=== PATIENT | male | born 1955 | race Caucasian/White ===

== ENCOUNTER → 2020-06-11 | Outpatient (CLI) | payer OTHER ==
[~2020-06-11] MED LIST: ALFUZOSIN HCL10 MG PO; XARELTO20 M1 PO
[2020-06-11 14:40] LABS: BASOPHILS ABSOLUTE AUTO 0.05 K/mm3 (0.00-0.23); BASOPHILS PERCENT AUTO 1 % (0-2); EOSINOPHILS ABSOLUTE AUTO 0.07 K/mm3 (0.00-0.68); EOSINOPHILS PERCENT AUTO 1 % (0-6); IMMATURE GRAN ABSOLUTE AUTO 0.02 K/mm3 (0.00-0.10); IMMATURE GRAN PERCENT AUTO 0 % (0-1); LYMPHOCYTES ABSOLUTE AUTO 1.08 K/mm3 (0.84-5.20); LYMPHOCYTES PERCENT AUTO 18 % (21-46); MONOCYTES ABSOLUTE AUTO 0.64 K/mm3 (0.16-1.47); MONOCYTES PERCENT AUTO 11 % (4-13); Mean Corpuscular HGB 21.4 pg (26.0-34.0); Mean Corpuscular HGB Conc 30.3 g/dL (31.5-36.5); Mean Corpuscular Volume 71 fL (80-100); Mean Platelet Volume 8.9 fL (9.1-12.4); NEUTROPHILS ABSOLUTE AUTO 4.25 K/mm3 (1.96-9.15); NEUTROPHILS PERCENT AUTO 70 % (41-73); Platelet Count 406 K/mm3 (150-400); RDW Coefficient Variation 18.1 % (11.7-14.2); RDW Standard Deviation 45.8 fL (35.1-46.3); White Blood Cell Count 6.11 K/mm3 (4.00-11.30)
[2020-06-11 14:41] LABS: Hemoglobin 4.7 g/dL (13.5-17.5)
[2020-06-11 14:42] LABS: Hematocrit 15.5 % (37.0-53.0)
[2020-06-11 14:56] LABS: Albumin, Blood 3.7 g/dL (3.4-5.0); Bilirubin, Total 0.7 mg/dL (0.1-1.0); Bun/Creatinine Ratio 10.1 (12.0-20.0); Calcium, Blood 8.9 mg/dL (8.5-10.1); Creatinine, Blood 1.68 mg/dL (0.60-1.20); Globulin, Blood 3.8 g/dL (2.2-4.0); Potassium, Blood 3.5 mmol/L (3.5-5.5); Thyroid Stimulating Hormone 3.106 uIU/mL (0.360-4.800); Total Protein, Blood 7.5 g/dL (6.4-8.2)
[2020-06-11 15:35] LABS: Troponin I 0.018 ng/mL (0.000-0.040)
== END | disposition home or self-care (01) ==
LOC: LAB SHORT 14:32
PROVIDERS: Physician Assistant
DX: R42 Dizziness and giddiness (principal); R53.83 Other fatigue; Z86.718 Personal history of other venous thrombosis and embolism
CPT/HCPCS: 80053; 83690; 84443; 84484; 85025; 85379

== ENCOUNTER → 2021-08-20 | Outpatient (CLI) | payer OTHER | END | disposition home or self-care (01) | LOC: LAB 11:08 → LAB SHORT 11:08 | DX: N39.0 Urinary tract infection, site not specified (principal) | CPT/HCPCS: 87086 ==

== ENCOUNTER 2022-01-17 19:21 | Inpatient (IN) | payer OTHER ==
[~2022-01-17] VITALS: Ht 177.8 cm; Wt 92.9 kg
[~2022-01-17 19:21] MED LIST changes: -BENADRYL25 M1 PO
[2022-01-17 21:17] LABS: Anti-Xa UFH, PHA Monitoring <0.10 IU/mL; International Normalized Ratio 1.09; Prothrombin Time Results 11.4 Sec (9.7-11.5)
[2022-01-18] MEDS ORDERED: BENADRYL25 M1 PO (00:17)
[2022-01-18 04:32] LABS: BASOPHILS ABSOLUTE AUTO 0.04 K/mm3 (0.00-0.23); BASOPHILS PERCENT AUTO 1 % (0-2); EOSINOPHILS ABSOLUTE AUTO 0.04 K/mm3 (0.00-0.68); EOSINOPHILS PERCENT AUTO 1 % (0-6); Hematocrit 36.2 % (37.0-53.0); Hemoglobin 12.5 g/dL (13.5-17.5); IMMATURE GRAN ABSOLUTE AUTO 0.01 K/mm3 (0.00-0.10); IMMATURE GRAN PERCENT AUTO 0 % (0-1); LYMPHOCYTES ABSOLUTE AUTO 2.19 K/mm3 (0.84-5.20); LYMPHOCYTES PERCENT AUTO 35 % (21-46); MONOCYTES ABSOLUTE AUTO 0.84 K/mm3 (0.16-1.47); MONOCYTES PERCENT AUTO 13 % (4-13); Mean Corpuscular HGB 32.4 pg (26.0-34.0); Mean Corpuscular HGB Conc 34.5 g/dL (31.5-36.5); Mean Corpuscular Volume 94 fL (80-100); Mean Platelet Volume 9.1 fL (9.1-12.4); NEUTROPHILS ABSOLUTE AUTO 3.19 K/mm3 (1.96-9.15); NEUTROPHILS PERCENT AUTO 51 % (41-73); Platelet Count 206 K/mm3 (150-400); RDW Coefficient Variation 13.3 % (11.7-14.2); RDW Standard Deviation 45.8 fL (35.1-46.3); Red Blood Cell Count 3.86 M/mm3 (4.30-5.90); White Blood Cell Count 6.31 K/mm3 (4.00-11.30)
[2022-01-18 04:48] LABS: Albumin, Blood 2.7 g/dL (3.4-5.0); Albumin/Globulin Ratio 0.7 (0.8-1.8); Bilirubin, Total 1.2 mg/dL (0.1-1.0); Bun/Creatinine Ratio 19.7 (12.0-20.0); Calcium, Blood 8.5 mg/dL (8.5-10.1); Creatinine, Blood 0.81 mg/dL (0.60-1.20); Globulin, Blood 3.8 g/dL (2.2-4.0); Total Protein, Blood 6.5 g/dL (6.4-8.2)
--- NOTE | 2022-01-18 05:43 | NUR ---
SHIFT SUMMARY PT ADMITTED TO PCU FOR PE AND CAME TO THE ROOM W/ A HEP GTT RUNNING AT 18. HE IS A&0X4, MOVES IND IN BED, CIWAS 2-3 T/O THE SHIFT, AND HE IS SR 80'S-90'S ON TELEMETRY. HE HAS BEEN SOB, BUT IT WORSENS W/ ACTIVITY. HE DESATURATED TO 88% AND WAS PLACED ON 1L NC TO [place] SP02>90%. HE DENIES ANGINA, N/V/D, ABD PAIN. WILL CONTINUE TO MONITOR UNTIL SHIFT REPORT IS GIVEN TO THE ONCOMING SHIFT RN. SEE NOTES FOR ANY UPDATES.
--- NOTE | 2022-01-18 09:22 | NUR ---
AM NOTE: PATIENT ALERT AND ORIENTED X4. SLIGHTLY ANXIOUS AND IRRITABLE WITH AM CARES. DENIES N/T. ABLE TO STAND AND USE URINAL WITH SBA TO HELP MANAGE CORDS. PERRLA. ON 1L NASAL CANNULA SATING MID-HIGH 90'S. NOTED TO BE AROUND 90% ON 1L WHEN SLEEPING THIS AM. LUNGS SOUNDING CLEAR. SOB WITH MOVEMENTS. NO COUGH NOTED. ON TELE SHOWING SINUS RHYTHM WITH HR 80-90'S. DENIES CHEST PAIN/PRESSURE/PALPITATIONS. BP STABLE. PPP. NO SIGNS OF EDEMA. HEPARIN GTT INFUSING PER EMAR. DENIES ABDOMINAL PAIN/NAUSEA. USING URINAL AT BEDSIDE. CIWA 3 THIS AM DUE TO HEADACHE AND ANXIETY. PATIENT STATES HE WISHES TO QUIT DRINKING AND WAS EDUCATED ON WITHDRAWL PROCESS. CALL LIGHT IN REACH. BED ALARM IN PLACE. WILL CONTINUE TO MONITOR.
--- NOTE | 2022-01-18 10:12 | NUR ---
PATIENT VERY AGGITATED AND ANXIOUS. CIWA SCORED 8. SEE EMAR FOR MEDICATIONS GIVEN.
--- NOTE | 2022-01-18 10:53 | NUR ---
DR. BRIGGS BY TO SEE PATIENT. THIS RN DISCUSSED PATIENT DESIRE TO WITHDRAWL WITH DR. BRIGGS AND COMPLAINTS OF CONSTIPATION. PRN BOWEL CARE MEDS ORDERED. PATIENT SLEEPING AT THIS TIME. O2 TITRATED TO 3L WHILE PATIENT SLEEPING TO MAINTAIN O2 AT 95%.
--- NOTE | 2022-01-18 16:19 | NUR ---
VENOUS DUPLEX OF BILATERAL LOWER EXREMITIES COMPLETED BY DIRECTOR FOUNDATION. PRELIMINARY REPORT GIVEN TO THIS RN: PATIENT POSITIVE FOR DVT IN BILATERAL LOWER EXTREMITIES WITH THE RIGHT LOOKING WORSE THAN LEFT. RESULTS CALLED INTO DR. BRIGGS. HEPARIN DRIP CONTINUES TO INFUSE PER EMAR. NO NEW ORDERS.
--- NOTE | 2022-01-18 18:41 | NUR ---
SHIFT SUMMARY: SEE PREVIOUS NOTES FOR UPDATES THROUGHOUT SHIFT. CIWA RANGE FROM 3-8 MEDICATED X1 FOR CIWA SCORE OF 8 WITH GOOD RESULTS. REMAINS ON 3L NASAL CANNULA. TELE CONTINUES TO SHOW SR. DR. BRIGGS IN TO DISCUSS VENOUS DUPLEX SCAN RESULTS WITH PATIENT. HEPARIN DRIP CONTINUES PER EMAR. UP TO BSC TO ATTEMPT BM. STOOL SOFTNERS ON BOARD. USING URINAL TO VOID. TALKING TO FAMILY ON PHONE THROUGHOUT SHIFT. CALLING FOR NEEDS. WITHDRAWL SYMPTOMS AND EDUCATION REINFORCED THROUGHOUT SHIFT. PATIENT SEEMS TO NEED LOTS OF REINFORCEMENT WITH EDUCATION. WILL CONTINUE TO MONITOR AND REPORT OFF TO ONCOMING RN.
[2022-01-19 04:40] LABS: BASOPHILS ABSOLUTE AUTO 0.06 K/mm3 (0.00-0.23); BASOPHILS PERCENT AUTO 1 % (0-2); EOSINOPHILS ABSOLUTE AUTO 0.13 K/mm3 (0.00-0.68); EOSINOPHILS PERCENT AUTO 2 % (0-6); Hematocrit 35.3 % (37.0-53.0); Hemoglobin 11.9 g/dL (13.5-17.5); IMMATURE GRAN ABSOLUTE AUTO 0.01 K/mm3 (0.00-0.10); IMMATURE GRAN PERCENT AUTO 0 % (0-1); LYMPHOCYTES PERCENT AUTO 47 % (21-46); MONOCYTES ABSOLUTE AUTO 0.65 K/mm3 (0.16-1.47); MONOCYTES PERCENT AUTO 11 % (4-13); Mean Corpuscular HGB 32.2 pg (26.0-34.0); Mean Corpuscular HGB Conc 33.7 g/dL (31.5-36.5); Mean Corpuscular Volume 96 fL (80-100); NEUTROPHILS ABSOLUTE AUTO 2.39 K/mm3 (1.96-9.15); NEUTROPHILS PERCENT AUTO 39 % (41-73); Platelet Count 228 K/mm3 (150-400); RDW Coefficient Variation 13.5 % (11.7-14.2); RDW Standard Deviation 47.5 fL (35.1-46.3); Red Blood Cell Count 3.69 M/mm3 (4.30-5.90); White Blood Cell Count 6.14 K/mm3 (4.00-11.30)
[2022-01-19 04:59] LABS: Albumin, Blood 2.5 g/dL (3.4-5.0); Anion Gap 7 mmol/L (6-16); Blood Urea Nitrogen 18 mg/dL (8-24); CO2, Blood 22 mmol/L (21-32); Calcium, Blood 8.7 mg/dL (8.5-10.1); Chloride, Blood 108 mmol/L (98-108); Glomerular Filtration Rate 95 (60-); Glucose, Blood 102 mg/dL (70-99); Phosphorus, Blood 3.6 mg/dL (2.5-4.9); Potassium, Blood 3.8 mmol/L (3.5-5.5); Sodium, Blood 137 mmol/L (136-145)
--- NOTE | 2022-01-19 05:06 | NUR ---
SHIFT SUMMARY PT A&0X4, CIWA 1-3. SR 70'S-90'S ON TELE, SP02>90% ON 2-3L NC, PT MOVES IND IN BED, AND HEPARIN RUNNING AT 18 GTTS. HE HAS DENIED, ANGINA, SOB, HEADACHE, ANXIETY, AND NUMBNESS/TINGLING. HE WAS HAVING SOME BACK ACHES AT THE BEGINING OF THE SHIFT AND WAS MEDICATED W/ TYLONAL, WHICH HAS RELIEVED THE PAIN. BED IN LOW, CALL LIGHT IN REACH. WILL CONTINUE TO MONITOR UNTIL SHIFT REPORT IS GIVEN TO THE ONCOMING SHIFT RN. SEE NOTES FOR ANY UPDATES.
--- NOTE | 2022-01-19 11:05 | NUR ---
AM NOTE: PATIENT ALERT AND ORIENTED X4. AT TIMES MORE ANXIOUS BUT DENIES NEED FOR MEDICATION. ALCOHOL WITHDRAWL EDUCATION PROVIDED. DENIES N/T. UP SBA TO HELP MANAGE CORDS. USING BSC AND URINAL. ON 3L NASAL CANNULA SATING MID 90'S. LUNGS SOUNDING CLEAR AND DIM. SOB WITH MOVEMENT. NO COUGH NOTED. TELE SHOWING SR WITH HR 70-90'S. DENIES CP/P. BP STABLE. PPP. NO SIGNS OF EDEMA. NO SWELLING NOTED IN LEGS. PATIENT AWARE OF HEPARIN RISK AND FALL PREVENTION. CALL LIGHT IN REACH. BED ALARM IN PLACE FOR SAFETY. DENIES ABDOMINAL PAIN/NAUSEA. EATING WNL. PLAN FOR NPO AT MIDNIGHT TO PREPARE FOR [facility] CONSULT ON 12/5 AM. CIWA SCORE THIS AM 3. STOOL SOFTNERS ON BOARD NEEDED. PATIENT DENIES THIS AM. DENIES OVERALL PAIN. SKIN C/D/I. HEPARIN INFUSING PER EMAR. WILL CONITNUE TO MONITOR.
--- NOTE | 2022-01-19 17:52 | NUR ---
SHIFT SUMMARY: NO ACUTE CHANGES. SEE PREVIOUS NOTES FOR UPDATES. HIGHEST CIWA SCORED 8, TOTAL 1MG IV ATIVAN AND 25 MG PO LIBRIUM GIVEN THIS SHIFT. HEPARIN CONTINUES TO INFUSE PER EMAR. [facility] CONSULT IN PLACE. NPO AT MIDNIGHT. VITAL SIGNS REMAIN STABLE. ON 3L NASAL CANNULA. CALL LIGHT IN REACH. WILL CONTINUE TO MONITOR AND REPORT OFF TO ONCOMING RN.
[2022-01-20 04:13] LABS: BASOPHILS ABSOLUTE AUTO 0.05 K/mm3 (0.00-0.23); BASOPHILS PERCENT AUTO 1 % (0-2); EOSINOPHILS ABSOLUTE AUTO 0.13 K/mm3 (0.00-0.68); EOSINOPHILS PERCENT AUTO 2 % (0-6); Hematocrit 33.6 % (37.0-53.0); Hemoglobin 11.6 g/dL (13.5-17.5); IMMATURE GRAN ABSOLUTE AUTO 0.01 K/mm3 (0.00-0.10); IMMATURE GRAN PERCENT AUTO 0 % (0-1); LYMPHOCYTES ABSOLUTE AUTO 2.31 K/mm3 (0.84-5.20); LYMPHOCYTES PERCENT AUTO 41 % (21-46); MONOCYTES ABSOLUTE AUTO 0.56 K/mm3 (0.16-1.47); MONOCYTES PERCENT AUTO 10 % (4-13); Mean Corpuscular HGB 32.4 pg (26.0-34.0); Mean Corpuscular HGB Conc 34.5 g/dL (31.5-36.5); Mean Corpuscular Volume 94 fL (80-100); Mean Platelet Volume 8.7 fL (9.1-12.4); NEUTROPHILS PERCENT AUTO 46 % (41-73); Platelet Count 208 K/mm3 (150-400); RDW Coefficient Variation 13.3 % (11.7-14.2); RDW Standard Deviation 46.1 fL (35.1-46.3); Red Blood Cell Count 3.58 M/mm3 (4.30-5.90); White Blood Cell Count 5.66 K/mm3 (4.00-11.30)
--- NOTE | 2022-01-20 04:49 | NUR ---
SHIFT SUMMARY PT IS A&OX4, IND MOVING IN BED, CIWA 0-3, TELE SR 80'S-90'S, SP02 >90% ON 3L WHEN ASLEEP, DENIES ANGINA/CHEST PRESSURE, AND AND HAS A HEPARIN GTT RUNNING AT 18. PT'S HGB HAS BEEN TRENDING DOWN, BUT HE HAS NO SIGNS OF BLEEDING OR ECCHYMOSIS. HE HAS NOT HAD A BM IN A FEW DAYS AND WAS GIVEN BOWEL PREP DURING DAY SHIFT AND PRUNE JUICE DURING THE NIGHT. PT WAS C/O SOME BACK PAIN AND WAS MEDICATED W/ 650 MG TYLONAL WHICH RELIEVED THE PAIN. PT WAS SITTING IN THE CHAIR AT THE START OF THE SHIFT AND GAVE HIMSELF A BEDBATH, SHAVED, AND DID ORAL CARE. HE HAS BEEN NPO SINCE 0000 AND HAS SLEPT AFTER BEING MEDICATED. WILL CONTINUE TO MONITOR UNTIL SHIFT REPORT IS GIVEN TO THE ONCOMING SHIFT RN. SEE NOTES FOR ANY UPDATES.
--- NOTE | 2022-01-20 18:17 | NUR ---
Shift Summary Pt alert & oriented x4; anxious but coopertive with care. Pt up ind in room. Pt denies pain, chest pain/pressure, nausea, dizziness and numb/tingling. Pt on a heparin gtt per orders. Pt tele sinus, bp stable. Spo2 >90% on 1-2l o2 via nc, ls clear, breathing even and unlabored. No bm during shift, pt requesting additional prune juice, provided. Other vss. No other acute changes noted. Npo at ne for procedure with Dr Romano tomorrow. Will continue to monitor.
--- NOTE | 2022-01-20 23:48 | NUR ---
PT HAD LARGE, FORMED BM ON BSC, APPROX 15CC OF MARIO BLOOD NOTED AND STOOL WAS DARK BUT NOT TARRY, PT ALSO STATES HE HAD A NOSEBLEED YESTERDAY AND AGAIN TONIGHT, LEFT NARE PACKED WITH TISSUE AND NO ACTIVE BLEEDING OBSERVED, NOTIFIED DR SÁNCHEZ WHILE IN UNIT, VSS AND HGB RECHECK IN AM, NOTIFY DR MIGUEL IN AM
[2022-01-21 04:23] LABS: BASOPHILS ABSOLUTE AUTO 0.04 K/mm3 (0.00-0.23); BASOPHILS PERCENT AUTO 1 % (0-2); EOSINOPHILS ABSOLUTE AUTO 0.17 K/mm3 (0.00-0.68); EOSINOPHILS PERCENT AUTO 3 % (0-6); Hematocrit 36.3 % (37.0-53.0); Hemoglobin 12.2 g/dL (13.5-17.5); IMMATURE GRAN ABSOLUTE AUTO 0.01 K/mm3 (0.00-0.10); IMMATURE GRAN PERCENT AUTO 0 % (0-1); LYMPHOCYTES ABSOLUTE AUTO 2.52 K/mm3 (0.84-5.20); LYMPHOCYTES PERCENT AUTO 49 % (21-46); MONOCYTES ABSOLUTE AUTO 0.55 K/mm3 (0.16-1.47); MONOCYTES PERCENT AUTO 11 % (4-13); Mean Corpuscular HGB 32.4 pg (26.0-34.0); Mean Corpuscular HGB Conc 33.6 g/dL (31.5-36.5); Mean Corpuscular Volume 97 fL (80-100); Mean Platelet Volume 8.9 fL (9.1-12.4); NEUTROPHILS ABSOLUTE AUTO 1.84 K/mm3 (1.96-9.15); NEUTROPHILS PERCENT AUTO 36 % (41-73); Platelet Count 225 K/mm3 (150-400); RDW Coefficient Variation 13.3 % (11.7-14.2); RDW Standard Deviation 47.8 fL (35.1-46.3); Red Blood Cell Count 3.76 M/mm3 (4.30-5.90); White Blood Cell Count 5.13 K/mm3 (4.00-11.30)
--- NOTE | 2022-01-21 05:59 | NUR ---
CIWA'S 8-9, LIBRIUM 50 MG X'S 1, HEPARIN GTT TITRATED DOWN TO 16 UNITS, PT RESTLESS AND SLIGHTLY AGITATED THROUGHOUT THE NIGHT BUT DID SLEEP A COUPLE HOURS AT A TIME, LARGE BM WITH SMALL AMOUNT OF MARIO BLOOD, REPORTED TO DR SÁNCHEZ AND REMEDIAL TEACHER, WILL PASS ON FOR DR LUNDBERG TO BE NOTIFIED AND NOTE PLACED IN CHART WELL
--- NOTE | 2022-01-21 08:03 | NUR ---
Am note Pt appears to be sleeping, wakes easily to verbal stimuli. Alert, oriented x4, anxious. Ciwa this am 2. Ind in room, calls appropriately. Pt denies pain, chest pain/pressure, sob, nasuea, dizziness and numb/tingling/itching. Pt remains npo for procedure this am. Pt tele sinus 60-70, occasionally dropping to 50's while sleeping, bp stable. Spo2 >98% on 1l o2 via nc, pt requesting to keep o2 for comfort, will attempted to remove after procedure. Abd soft nontedner, bm last night with ji red blood per report, hypoactive bt noted t/o. Pt receiving heparin gtt. Other vss. No other acute changes noted. Will continue to monitor.
--- NOTE | 2022-01-21 18:19 | NUR ---
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 Pt educated on activity restrictions and leg restrictions. At approx 1400, pt found up walking in room, blood noted on floor, pt directed back to bed, held pressure to right groin site for 10 minutes, heparin stopped, and dressing replaced. Started recovery process over, restarted heparin at approx 1730. No additional bleeding noted, knot under suture increased slightly. Other vss. no other acute changes Plans for NPO after MN for additionally thrombectomy tomorrow. Will continue to monitor
--- NOTE | 2022-01-21 20:04 | NUR ---
R GROIN SITE ASSESSMENT RIGHT GROIN ACCESS SITE WITH VERY SMALL AMOUNT OF BLOOD ON TEGADERM/CHG DRESSING, SITE IS NOT ACTIVELY OOZING. THERE IS A SMALL HEMATOMA UNDER ACCESS SITE, PT REPORS MILD TENDERNESS WHEN PALPATED. NO SWELLING NOTED. PT ABLE TO STAND AT BEDSIDE WITHOUT SITE BLEEDING. EDUCATION REGARDING PT NOT BEING ABLE TO GET OUT OF BED OR AMBULATE. PT INSTRUCTED TO CALL IF THEY NEED TO USE RESTROOM. BED ALARM ON, BED IN LOWEST POSITION, CALL LIGHT IN REACH.
--- NOTE | 2022-01-22 00:11 | NUR ---
ASSUMPTION OF CARE ASSUMED CARE OF PT AT 1900. PT A&Ox4, CALLS AND COMMUNICATES NEEDS APPROPRIATELY. VSS, SpO2> 92% RA, PT REQUESTING TO BE ON 2L VIA NC FOR COMFORT. BP STABLE, SINUS 60-70's, DENIES CP/PRESSURE. SEE R GROIN SITE ASSESSMENT NOTE. PT USIG URINAL AT BEDSIDE WITH CLINICAL STAFF. PT NPO AT 0000. BED ALARM ON, BED IN LOSET POSITION, CALL LIGHT IN REACH.
--- NOTE | 2022-01-22 05:53 | NUR ---
SHIFT SUMMARY SEE RIGHT GROIN SITE ASSESSMENT NOTE AND ASSUMPTION OF CARE NOTE. NO ACUTE CHANGES OVERNIGHT. R GROIN SITE REMAINS STABLE AND UNCHANGED. WILL REPORT TO DAY SHIFT RN.
[2022-01-22 06:23] LABS: BASOPHILS ABSOLUTE AUTO 0.05 K/mm3 (0.00-0.23); BASOPHILS PERCENT AUTO 1 % (0-2); EOSINOPHILS ABSOLUTE AUTO 0.22 K/mm3 (0.00-0.68); EOSINOPHILS PERCENT AUTO 4 % (0-6); IMMATURE GRAN PERCENT AUTO 0 % (0-1); LYMPHOCYTES ABSOLUTE AUTO 2.33 K/mm3 (0.84-5.20); LYMPHOCYTES PERCENT AUTO 45 % (21-46); MONOCYTES ABSOLUTE AUTO 0.48 K/mm3 (0.16-1.47); MONOCYTES PERCENT AUTO 9 % (4-13); Mean Corpuscular HGB 32.2 pg (26.0-34.0); Mean Corpuscular HGB Conc 33.3 g/dL (31.5-36.5); Mean Corpuscular Volume 97 fL (80-100); Mean Platelet Volume 9.1 fL (9.1-12.4); NEUTROPHILS ABSOLUTE AUTO 2.06 K/mm3 (1.96-9.15); NEUTROPHILS PERCENT AUTO 40 % (41-73); Platelet Count 230 K/mm3 (150-400); RDW Coefficient Variation 13.4 % (11.7-14.2); RDW Standard Deviation 47.8 fL (35.1-46.3); Red Blood Cell Count 3.42 M/mm3 (4.30-5.90); White Blood Cell Count 5.14 K/mm3 (4.00-11.30)
--- NOTE | 2022-01-22 07:57 | NUR ---
Am note Pt alert, oriented x4, calm and cooperative with care. Pt resting in bed, bed alarm on, sba in room. Pt denies pain, chest pain/pressure, sob, nausea, dizziness and numb/tingling/itching. Tele sinus 60-70's bp stable. Spo2 at 100% on 1l o2 via nc, titrated to ra, spo2 now 95%. Abd soft nontender, hypo to normoactive bt. Pt continues on heparin gtt per orders. Right groin site c/d/i, no additional bleeding, or bruising noted, continues with slight knot under site. Vss. No other acute changes noted. Will continue to monitor.
--- NOTE | 2022-01-22 19:27 | NUR ---
Shift Summary Pt to assistant laboratory director, back to room, at approx 1445, right popliteal with flow stasis closure. Right groin site remains unchanged. Vss. Pt reporting pain to right groin site, tylenol given with no results, pt requesting additional pain medication, notified Dr Jacquelyn MD to bedside, new order for one time dose of fentanyl. No other acute changes noted. Report given to oncoming rn.
--- NOTE | 2022-01-23 04:08 | NUR ---
SHIFT SUMMARY: PT REMAINS ALERT AND ORIENTED X4, ABLE TO FOLLOW COMMANDS AND MAKE NEEDS KNOWN. BP STABLE, HR SR 90'S, AFEBRILE, SATTING >95% ON RA, RESPIRATIONS EVEN AND UNLABORED. PT COMPLAINING OF R GROIN SITE PAIN THROUGHOUT THE NIGHT, NO SIGNS OF BLEEDING,SWELLING, HEMATOMA. MEDICATED PER EMAR. R POPLITEAL SITE WITH FLOW STASIS IN PLACE, TO BE REMOVED IN THE AM. PT IND WITH URINAL, NO BM THIS SHIFT. BED IN LOW, CALL LIGHT IN REACH, WILL REPORT TO ONCOMING RN.
[2022-01-23 04:31] LABS: Hematocrit 30.9 % (37.0-53.0); Hemoglobin 10.4 g/dL (13.5-17.5)
[2022-01-23] MEDS ORDERED: Acetaminophen650 M1 PO (11:58)
[2022-01-23] MEDS ORDERED: Colace100 MG PO (11:59)
[2022-01-23] MEDS ORDERED: XARELTO15 MG PO (11:59)
[2022-01-23] MEDS ORDERED: B-1100 M2 PO (12:00)
--- NOTE | 2022-01-23 15:20 | NUR ---
PT EDUCATED THOROUGHLY ON D/C, PT WROTE HIS D/C OUT BY HAND WELL PROVIDED WITH PRINTED COPIES. HE IS MADE AWARE OF PENDING APPOINTMENTS. HE EXPRESSED UNDERSTANDING OF DX TEACHING
== END 2022-01-23 13:08 | disposition home or self-care (01) | DRG 163 ==
LOC: ER 19:21 → PCU 19:22
PROVIDERS: Family Medicine; Internal Medicine; Student in an Organized Health Care Education/Training Program; ADMIT Hospitalist
PROC: 02CR3ZZ Extirpation of Matter from Left Pulmonary Artery, Percutaneous Approach (ICD-10-PCS; principal; 2022-01-21)
PROC: 02CQ3ZZ Extirpation of Matter from Right Pulmonary Artery, Percutaneous Approach (ICD-10-PCS; 2022-01-21)
PROC: B31TYZZ Fluoroscopy of Left Pulmonary Artery using Other Contrast (ICD-10-PCS; 2022-01-21)
PROC: B31SYZZ Fluoroscopy of Right Pulmonary Artery using Other Contrast (ICD-10-PCS; 2022-01-21)
PROC: B51BYZA Fluoroscopy of Right Lower Extremity Veins using Other Contrast, Guidance (ICD-10-PCS; 2022-01-21)
PROC: 067M3ZZ Dilation of Right Femoral Vein, Percutaneous Approach (ICD-10-PCS; 2022-01-22)
PROC: 067C3DZ Dilation of Right Common Iliac Vein with Intraluminal Device, Percutaneous Approach (ICD-10-PCS; 2022-01-22)
PROC: B54BZZ3 Ultrasonography of Right Lower Extremity Veins, Intravascular (ICD-10-PCS; 2022-01-22)
PROC: 06CC3ZZ Extirpation of Matter from Right Common Iliac Vein, Percutaneous Approach (ICD-10-PCS; 2022-01-22)
DX: I26.09 Other pulmonary embolism with acute cor pulmonale (principal); J96.01 Acute respiratory failure with hypoxia; F10.239 Alcohol dependence with withdrawal, unspecified; I82.511 Chronic embolism and thrombosis of right femoral vein; I82.532 Chronic embolism and thrombosis of left popliteal vein; I82.812 Embolism and thrombosis of superficial veins of left lower extremity; I82.411 Acute embolism and thrombosis of right femoral vein; I82.421 Acute embolism and thrombosis of right iliac vein; E88.09 Other disorders of plasma-protein metabolism, not elsewhere classified; D64.9 Anemia, unspecified; L29.9 Pruritus, unspecified; T42.4X5A Adverse effect of benzodiazepines, initial encounter; Z88.8 Allergy status to other drugs, medicaments and biological substances; Z79.01 Long term (current) use of anticoagulants; Z79.899 Other long term (current) drug therapy; Z98.890 Other specified postprocedural states
CPT/HCPCS: 36415; 37184; 37185; 75743; 75820; 75825; 76937; 80053; 80069; 84484; 85014; 85018; 85025; 85520; 85610; 85730; 93005; 93010; 93306; 93970; 94762; 96365; 96366; 96376; 99152; 99153; 99285-25; A9270; C1725; C1751; C1753; C1757; C1769; C1876; C1887; C1894; J1644; J2060; J2250; J3010; J7030; J7050; Q9967

== ENCOUNTER → 2022-01-17 | Outpatient (CLI) | payer OTHER ==
[~2022-01-17] MED LIST changes: +BENADRYL25 M1 PO
[2022-01-17 16:19] LABS: BASOPHILS ABSOLUTE AUTO 0.03 K/mm3 (0.00-0.23); BASOPHILS PERCENT AUTO 0 % (0-2); EOSINOPHILS ABSOLUTE AUTO 0.02 K/mm3 (0.00-0.68); EOSINOPHILS PERCENT AUTO 0 % (0-6); Hematocrit 40.6 % (37.0-53.0); IMMATURE GRAN ABSOLUTE AUTO 0.03 K/mm3 (0.00-0.10); IMMATURE GRAN PERCENT AUTO 0 % (0-1); LYMPHOCYTES PERCENT AUTO 19 % (21-46); MONOCYTES ABSOLUTE AUTO 0.93 K/mm3 (0.16-1.47); MONOCYTES PERCENT AUTO 12 % (4-13); Mean Corpuscular HGB 32.4 pg (26.0-34.0); Mean Corpuscular HGB Conc 34.5 g/dL (31.5-36.5); Mean Corpuscular Volume 94 fL (80-100); Mean Platelet Volume 8.8 fL (9.1-12.4); NEUTROPHILS ABSOLUTE AUTO 5.35 K/mm3 (1.96-9.15); NEUTROPHILS PERCENT AUTO 68 % (41-73); Platelet Count 216 K/mm3 (150-400); RDW Coefficient Variation 13.4 % (11.7-14.2); Red Blood Cell Count 4.32 M/mm3 (4.30-5.90); White Blood Cell Count 7.86 K/mm3 (4.00-11.30)
[2022-01-17 16:25] LABS: Bun/Creatinine Ratio 13.6 (12.0-20.0); Calcium, Blood 9.2 mg/dL (8.5-10.1); Creatinine, Blood 1.1 mg/dL (0.60-1.20); Potassium, Blood 3.8 mmol/L (3.5-5.5)
== END | disposition home or self-care (01) ==
LOC: LAB SHORT 16:14 → LAB 16:14
PROVIDERS: Physician Assistant Surgical
DX: R06.09 Other forms of dyspnea (principal)
CPT/HCPCS: 80048; 84484; 85025; 85379

== ENCOUNTER → 2022-02-02 | Outpatient (CLI) | payer OTHER ==
[~2022-02-02] MED LIST changes: +AMOCLA875 PO; +Acetaminophen650 M1 PO; +B-1100 M2 PO; +BENADRYL25 M1 PO; +Colace100 MG PO; +XARELTO15 MG PO
[2022-02-02 16:57] LABS: BASOPHILS ABSOLUTE AUTO 0.07 K/mm3 (0.00-0.23); BASOPHILS PERCENT AUTO 1 % (0-2); EOSINOPHILS ABSOLUTE AUTO 0.14 K/mm3 (0.00-0.68); EOSINOPHILS PERCENT AUTO 2 % (0-6); Hematocrit 33.4 % (37.0-53.0); Hemoglobin 11.2 g/dL (13.5-17.5); IMMATURE GRAN ABSOLUTE AUTO 0.01 K/mm3 (0.00-0.10); IMMATURE GRAN PERCENT AUTO 0 % (0-1); LYMPHOCYTES ABSOLUTE AUTO 1.64 K/mm3 (0.84-5.20); LYMPHOCYTES PERCENT AUTO 23 % (21-46); MONOCYTES ABSOLUTE AUTO 0.72 K/mm3 (0.16-1.47); MONOCYTES PERCENT AUTO 10 % (4-13); Mean Corpuscular HGB 30.9 pg (26.0-34.0); Mean Corpuscular HGB Conc 33.5 g/dL (31.5-36.5); Mean Corpuscular Volume 92 fL (80-100); Mean Platelet Volume 8.3 fL (9.1-12.4); NEUTROPHILS ABSOLUTE AUTO 4.59 K/mm3 (1.96-9.15); NEUTROPHILS PERCENT AUTO 64 % (41-73); Platelet Count 370 K/mm3 (150-400); RDW Standard Deviation 47.8 fL (35.1-46.3); Red Blood Cell Count 3.63 M/mm3 (4.30-5.90); White Blood Cell Count 7.17 K/mm3 (4.00-11.30)
[2022-02-02 17:07] LABS: Albumin, Blood 3.4 g/dL (3.4-5.0); Albumin/Globulin Ratio 0.9 (0.8-1.8); Bilirubin, Total 0.7 mg/dL (0.1-1.0); Bun/Creatinine Ratio 30.2 (12.0-20.0); Calcium, Blood 9.5 mg/dL (8.5-10.1); Creatinine, Blood 0.96 mg/dL (0.60-1.20); Potassium, Blood 3.8 mmol/L (3.5-5.5); Total Protein, Blood 7.4 g/dL (6.4-8.2)
== END | disposition home or self-care (01) ==
LOC: LAB SHORT 16:51 → LAB 16:51
PROVIDERS: Physician Assistant Medical
DX: R53.83 Other fatigue (principal); R42 Dizziness and giddiness
CPT/HCPCS: 80053; 84484; 85025

== ENCOUNTER → 2022-02-03 | Outpatient (CLI) | payer OTHER ==
[2022-02-03 16:25] LABS: BASOPHILS ABSOLUTE AUTO 0.07 K/mm3 (0.00-0.23); BASOPHILS PERCENT AUTO 1 % (0-2); EOSINOPHILS ABSOLUTE AUTO 0.14 K/mm3 (0.00-0.68); EOSINOPHILS PERCENT AUTO 2 % (0-6); Hematocrit 33.3 % (37.0-53.0); Hemoglobin 11.3 g/dL (13.5-17.5); IMMATURE GRAN ABSOLUTE AUTO 0.01 K/mm3 (0.00-0.10); IMMATURE GRAN PERCENT AUTO 0 % (0-1); LYMPHOCYTES ABSOLUTE AUTO 1.95 K/mm3 (0.84-5.20); LYMPHOCYTES PERCENT AUTO 33 % (21-46); MONOCYTES PERCENT AUTO 10 % (4-13); Mean Corpuscular HGB Conc 33.9 g/dL (31.5-36.5); Mean Corpuscular Volume 91 fL (80-100); Mean Platelet Volume 8.5 fL (9.1-12.4); NEUTROPHILS ABSOLUTE AUTO 3.09 K/mm3 (1.96-9.15); NEUTROPHILS PERCENT AUTO 53 % (41-73); Platelet Count 379 K/mm3 (150-400); RDW Coefficient Variation 14.1 % (11.7-14.2); RDW Standard Deviation 47.7 fL (35.1-46.3); Red Blood Cell Count 3.65 M/mm3 (4.30-5.90); White Blood Cell Count 5.86 K/mm3 (4.00-11.30)
[2022-02-03 16:39] LABS: Albumin, Blood 3.7 g/dL (3.4-5.0); Albumin/Globulin Ratio 0.9 (0.8-1.8); Bilirubin, Total 0.6 mg/dL (0.1-1.0); Bun/Creatinine Ratio 29.1 (12.0-20.0); Calcium, Blood 9.3 mg/dL (8.5-10.1); Creatinine, Blood 0.79 mg/dL (0.60-1.20); Potassium, Blood 3.6 mmol/L (3.5-5.5); Total Protein, Blood 7.7 g/dL (6.4-8.2)
== END | disposition home or self-care (01) ==
LOC: LAB SHORT 16:22 → LAB 16:22
PROVIDERS: Physician Assistant
DX: D64.9 Anemia, unspecified (principal)
CPT/HCPCS: 80053; 85025

== ENCOUNTER 2022-02-09 04:29 | Emergency (ER) | payer OTHER ==
[~2022-02-09] VITALS: Ht 172.7 cm; Wt 83.9 kg
[~2022-02-09 04:29] MED LIST changes: -AMOCLA875 PO
[2022-02-09 05:05] LABS: BASOPHILS ABSOLUTE AUTO 0.04 K/mm3 (0.00-0.23); BASOPHILS PERCENT AUTO 1 % (0-2); EOSINOPHILS ABSOLUTE AUTO 0.16 K/mm3 (0.00-0.68); EOSINOPHILS PERCENT AUTO 2 % (0-6); Hematocrit 32.5 % (37.0-53.0); IMMATURE GRAN ABSOLUTE AUTO 0.03 K/mm3 (0.00-0.10); IMMATURE GRAN PERCENT AUTO 0 % (0-1); LYMPHOCYTES ABSOLUTE AUTO 1.53 K/mm3 (0.84-5.20); LYMPHOCYTES PERCENT AUTO 19 % (21-46); MONOCYTES PERCENT AUTO 11 % (4-13); Mean Corpuscular HGB 30.6 pg (26.0-34.0); Mean Corpuscular HGB Conc 33.8 g/dL (31.5-36.5); Mean Corpuscular Volume 90 fL (80-100); Mean Platelet Volume 8.5 fL (9.1-12.4); NEUTROPHILS ABSOLUTE AUTO 5.21 K/mm3 (1.96-9.15); NEUTROPHILS PERCENT AUTO 66 % (41-73); Platelet Count 355 K/mm3 (150-400); RDW Coefficient Variation 14.3 % (11.7-14.2); RDW Standard Deviation 47.8 fL (35.1-46.3); White Blood Cell Count 7.87 K/mm3 (4.00-11.30)
[2022-02-09 05:31] LABS: Albumin, Blood 3.2 g/dL (3.4-5.0); Albumin/Globulin Ratio 0.8 (0.8-1.8); Bun/Creatinine Ratio 23.1 (12.0-20.0); Calcium, Blood 9.8 mg/dL (8.5-10.1); Creatinine, Blood 0.74 mg/dL (0.60-1.20); Globulin, Blood 4.1 g/dL (2.2-4.0); Potassium, Blood 3.7 mmol/L (3.5-5.5); Total Protein, Blood 7.3 g/dL (6.4-8.2)
[2022-02-09] MEDS ORDERED: AMOCLA875 PO (07:01)
== END 2022-02-09 07:25 | disposition home or self-care (01) ==
LOC: ER 04:29
PROVIDERS: Student in an Organized Health Care Education/Training Program
DX: R10.32 Left lower quadrant pain (principal); Z88.8 Allergy status to other drugs, medicaments and biological substances; Z79.899 Other long term (current) drug therapy; Z79.02 Long term (current) use of antithrombotics/antiplatelets
CPT/HCPCS: 74177; 80053; 85025; A9270; J7030; Q9967

== ENCOUNTER 2022-04-19 11:22 | Emergency (ER) | payer OTHER ==
[~2022-04-19] VITALS: Ht 177.8 cm; Wt 86.2 kg
[~2022-04-19 11:22] MED LIST changes: +AMOCLA875 PO
[2022-04-19] MEDS ORDERED: PRAHYD1AEA PR (12:29)
== END 2022-04-19 12:38 | disposition home or self-care (01) ==
LOC: ER 11:22
DX: K64.4 Residual hemorrhoidal skin tags (principal); K64.8 Other hemorrhoids; Z79.899 Other long term (current) drug therapy
CPT/HCPCS: 82272; 99284

== ENCOUNTER 2022-12-07 19:34 | Emergency (ER) | payer OTHER ==
[~2022-12-07] VITALS: Ht 177.8 cm; Wt 88.5 kg
[~2022-12-07 19:34] MED LIST changes: +PRAHYD1AEA PR
[2022-12-07] MEDS ORDERED: ZOLPIDEM TART12.5 MG PO (20:20)
[2022-12-07 20:23] LABS: BASOPHILS ABSOLUTE AUTO 0.04 K/mm3 (0.00-0.23); BASOPHILS PERCENT AUTO 1 % (0-2); EOSINOPHILS ABSOLUTE AUTO 0.02 K/mm3 (0.00-0.68); EOSINOPHILS PERCENT AUTO 0 % (0-6); Hematocrit 29.9 % (37.0-53.0); Hemoglobin 10.1 g/dL (13.5-17.5); IMMATURE GRAN ABSOLUTE AUTO 0.01 K/mm3 (0.00-0.10); IMMATURE GRAN PERCENT AUTO 0 % (0-1); LYMPHOCYTES PERCENT AUTO 27 % (21-46); MONOCYTES ABSOLUTE AUTO 0.74 K/mm3 (0.16-1.47); MONOCYTES PERCENT AUTO 12 % (4-13); Mean Corpuscular HGB Conc 33.8 g/dL (31.5-36.5); Mean Corpuscular Volume 86 fL (80-100); Mean Platelet Volume 8.6 fL (9.1-12.4); NEUTROPHILS ABSOLUTE AUTO 3.58 K/mm3 (1.96-9.15); NEUTROPHILS PERCENT AUTO 60 % (41-73); Platelet Count 234 K/mm3 (150-400); RDW Coefficient Variation 16.5 % (11.7-14.2); RDW Standard Deviation 50.6 fL (35.1-46.3); Red Blood Cell Count 3.48 M/mm3 (4.30-5.90); White Blood Cell Count 5.99 K/mm3 (4.00-11.30)
[2022-12-07 20:55] LABS: Ethanol (Alcohol), Blood, Med 260 mg/dL; Salicylate <1.7 mg/dL (2.8-20.0)
[2022-12-07 20:57] LABS: Alanine Aminotransfer (ALT/SGP 53 U/L (12-78); Albumin, Blood 3.4 g/dL (3.4-5.0); Albumin/Globulin Ratio 0.9 (0.8-1.8); Alk Phos 69 U/L (50-136); Anion Gap 9 mmol/L (6-16); Aspartate Aminotrans (AST/SGOT 132 U/L (12-37); Bilirubin, Total 1.2 mg/dL (0.1-1.0); Blood Urea Nitrogen 17 mg/dL (8-24); Bun/Creatinine Ratio 20.1 (12.0-20.0); CO2, Blood 24 mmol/L (21-32); Calcium, Blood 8.7 mg/dL (8.5-10.1); Chloride, Blood 110 mmol/L (98-108); Creatinine, Blood 0.84 mg/dL (0.60-1.20); Globulin, Blood 3.8 g/dL (2.2-4.0); Glomerular Filtration Rate 96 (60-); Glucose, Blood 107 mg/dL (70-99); Potassium, Blood 3.5 mmol/L (3.5-5.5); Sodium, Blood 143 mmol/L (136-145); Total Protein, Blood 7.2 g/dL (6.4-8.2)
[2022-12-07 20:58] LABS: Acetaminophen, Random <2.0 ug/mL (10.0-30.0)
[2022-12-07 23:01] LABS: Source, Urine Clean Catch
[2022-12-07 23:08] LABS: Bilirubin, Urine Neg (Neg); Blood, Urine 4+ (Neg); Glucose Qualitative, Urine Neg (Neg); Ketones, Urine 2+ (Neg); Leukocyte Esterase, Urine 3+ (Neg); Nitrite, Urine Neg (Neg); Protein, Urine 3+ (Neg); Urobilinogen, Urine 1+ (Normal)
[2022-12-07 23:10] LABS: Appearance, Urine Hazy (Clear); Color, Urine Yellow (P-Yellow)
[2022-12-07 23:14] LABS: Amorphous Heavy (0-Heavy); Bacteria Mod /hpf; Red Blood Cells, Urine 0-2 /hpf (0-2); Squamous Epithelial Cells Not Seen /hpf (Few); White Blood Cells, Urine 25-50 /hpf (0-5)
[2022-12-07 23:18] LABS: U Amphetamine Screen Not Detected; U Barbituate Screen Not Detected; U Benzodiazapine Screen Not Detected; U Buprenorphine Screen Not Detected; U Cannabinoids Screen DETECTED; U Cocaine Screen Not Detected; U Methadone Screen Not Detected; U Methamphetamine Screen Not Detected; U Opiates Screen Not Detected; U Oxycodone Screen Not Detected; U Phencyclidine Screen Not Detected; U Propoxyphene Screen Not Detected
[2022-12-07 23:57] VITALS: BP 147/86
== END 2022-12-07 23:20 | disposition home or self-care (01) ==
LOC: ER 19:34
PROVIDERS: Emergency Medicine
DX: F32.A Depression, unspecified (principal); R00.2 Palpitations; F10.90 Alcohol use, unspecified, uncomplicated; Z88.8 Allergy status to other drugs, medicaments and biological substances; Z79.02 Long term (current) use of antithrombotics/antiplatelets; Z79.899 Other long term (current) drug therapy
CPT/HCPCS: 36415; 70450; 71045; 80053; 81001; 84443; 85025; 87077; 87086; 87186; 93005; 93010; 99285-25; G0480

== ENCOUNTER → 2023-06-09 | Outpatient (CLI) | payer OTHER ==
[~2023-06-09] MED LIST changes: +NORTRIPTYLINE H2512 PO; +ZOLPIDEM TART12.5 MG PO
== END | disposition home or self-care (01) ==
LOC: LAB 18:02 → LAB SHORT 18:02
DX: R31.9 Hematuria, unspecified (principal)
CPT/HCPCS: 87086

== ENCOUNTER 2023-10-09 05:50 | Day surgery (SDC) | payer OTHER ==
[2023-10-09] VITALS (13 sets, daily range): BP systolic 125–150; BP diastolic 71–95
[~2023-10-09] VITALS: Ht 177.8 cm; Wt 93.5 kg
[~2023-10-09 05:50] MED LIST changes: +MULVITA PO
[2023-10-09] MEDS ORDERED: CeFAZolin Sodium 2,000 MG in NS 100 ML IV SCH (06:30)
[2023-10-09] MEDS ORDERED: Lactated Ringer's 1,000 ML IV SCH (06:30)
[2023-10-09] MEDS ORDERED: CeFAZolin Sodium 2,000 MG VIAL ONE (06:41)
[2023-10-09] MEDS ORDERED: NS 100 ML IV ONE (06:42)
[2023-10-09] MEDS ORDERED: Bupivacaine 0.5% HCl 5 MG/ML 30MLVIAL ONE (07:06)
[2023-10-09] MEDS ORDERED: propofoL 20 ML IV ONE (07:13)
[2023-10-09] MEDS ORDERED: Lidocaine HCl 2% 20 ML MDV ONE (07:14)
[2023-10-09] MEDS ORDERED: Rocuronium Bromide 10 MG/ML 5ML Injection IV ONE (07:14)
[2023-10-09] MEDS ORDERED: FentaNYL Citrate 50 MCG/ML 2 ML Injection ONE ×2 (07:14→09:16)
--- NOTE | 2023-10-09 07:29 | NUR ---
History, Chart, Medications and Allergies reviewed before start of procedure. Pre-Op teaching done. Pt verbalizes understanding. Ambulatory in Day Surgery WITH [facility]. Patient States Post-Procedure ride home has been arranged WITH [facility]. PT BELONGINGS PLACED UNDER GURNEY.
[2023-10-09] MEDS ORDERED: Dexamethasone Sod Phos 10 MG/ML 1ML VIAL ONE (07:59)
[2023-10-09] MEDS ORDERED: Ondansetron HCl 2 MG / ML 2ML Vial ONE (09:10)
[2023-10-09] MEDS ORDERED: Sugammadex Sodium 200 MG/2ML SDV (100 MG/ML) ONE (09:10)
[2023-10-09] MEDS ORDERED: HYDROcodone 5-APAP 325 TAB PO PRN (09:35)
--- NOTE | 2023-10-09 11:42 | NUR ---
Discharge instructions reviewed with patient. Patient verbalizes understanding. Copy given to patient to take home. Discharged via wheelchair to private car for ride home. Ice pack placed, education provided. Prescription sent electronically to [facility] per pt's request. Because patient is taking medical transport home, RN contacted [facility] & arranged for prescriptions to be delivered to patient's home per pt request.
== END 2023-10-09 11:35 | disposition home or self-care (01) ==
LOC: ORSCMMR 05:50 → ORD 07:30 → ORSCMMR 07:30
PROVIDERS: Surgery
PROC: 8E0W4CZ Robotic Assisted Procedure of Trunk Region, Percutaneous Endoscopic Approach (ICD-10-PCS; principal; 2023-10-09 07:30)
PROC: 0WQF4ZZ Repair Abdominal Wall, Percutaneous Endoscopic Approach (ICD-10-PCS; principal; 2023-10-09 07:30)
PROC: 0WUF4JZ Supplement Abdominal Wall with Synthetic Substitute, Percutaneous Endoscopic Approach (ICD-10-PCS; principal; 2023-10-09 07:30)
DX: K42.0 Umbilical hernia with obstruction, without gangrene (principal); K43.9 Ventral hernia without obstruction or gangrene; Z86.718 Personal history of other venous thrombosis and embolism; Z86.711 Personal history of pulmonary embolism; E88.09 Other disorders of plasma-protein metabolism, not elsewhere classified; Z79.01 Long term (current) use of anticoagulants; Z79.899 Other long term (current) drug therapy
CPT/HCPCS: A9270; C1781; J0690; J1100; J2405; J2704; J3010; J7120

== ENCOUNTER → 2024-01-31 | Outpatient (CLI) | payer OTHER ==
[2024-01-31 17:48] LABS: BASOPHILS ABSOLUTE AUTO 0.06 K/mm3 (0.00-0.23); BASOPHILS PERCENT AUTO 1 % (0-2); EOSINOPHILS ABSOLUTE AUTO 0.07 K/mm3 (0.00-0.68); EOSINOPHILS PERCENT AUTO 1 % (0-6); Hematocrit 29.7 % (37.0-53.0); Hemoglobin 8.8 g/dL (13.5-17.5); IMMATURE GRAN ABSOLUTE AUTO 0.02 K/mm3 (0.00-0.10); IMMATURE GRAN PERCENT AUTO 0 % (0-1); LYMPHOCYTES ABSOLUTE AUTO 1.43 K/mm3 (0.84-5.20); LYMPHOCYTES PERCENT AUTO 16 % (21-46); MONOCYTES ABSOLUTE AUTO 1.01 K/mm3 (0.16-1.47); MONOCYTES PERCENT AUTO 11 % (4-13); Mean Corpuscular HGB 21.3 pg (26.0-34.0); Mean Corpuscular HGB Conc 29.6 g/dL (31.5-36.5); Mean Corpuscular Volume 72 fL (80-100); Mean Platelet Volume 8.8 fL (9.1-12.4); NEUTROPHILS ABSOLUTE AUTO 6.42 K/mm3 (1.96-9.15); NEUTROPHILS PERCENT AUTO 71 % (41-73); Platelet Count 405 K/mm3 (150-400); RDW Coefficient Variation 20.5 % (11.7-14.2); RDW Standard Deviation 51.3 fL (35.1-46.3); Red Blood Cell Count 4.14 M/mm3 (4.30-5.90); White Blood Cell Count 9.01 K/mm3 (4.00-11.30)
[2024-01-31 18:01] LABS: Albumin, Blood 3.5 g/dL (3.4-5.0); Albumin/Globulin Ratio 0.7 (0.8-1.8); Bun/Creatinine Ratio 25.9 (12.0-20.0); Calcium, Blood 9.4 mg/dL (8.5-10.1); Creatinine, Blood 0.62 mg/dL (0.60-1.20); Globulin, Blood 4.9 g/dL (2.2-4.0); Total Protein, Blood 8.4 g/dL (6.4-8.2)
== END | disposition home or self-care (01) ==
LOC: LAB SHORT 17:42 → LAB 17:42
PROVIDERS: Physician Assistant
DX: R53.83 Other fatigue (principal)
CPT/HCPCS: 80053; 85025

== ENCOUNTER → 2024-02-08 | Outpatient (CLI) | payer OTHER ==
[2024-02-08 14:29] LABS: BASOPHILS ABSOLUTE AUTO 0.02 K/mm3 (0.00-0.23); BASOPHILS PERCENT AUTO 0 % (0-2); EOSINOPHILS ABSOLUTE AUTO 0.04 K/mm3 (0.00-0.68); EOSINOPHILS PERCENT AUTO 1 % (0-6); Hematocrit 32.5 % (37.0-53.0); Hemoglobin 9.8 g/dL (13.5-17.5); IMMATURE GRAN ABSOLUTE AUTO 0.02 K/mm3 (0.00-0.10); IMMATURE GRAN PERCENT AUTO 0 % (0-1); LYMPHOCYTES ABSOLUTE AUTO 1.33 K/mm3 (0.84-5.20); LYMPHOCYTES PERCENT AUTO 23 % (21-46); MONOCYTES ABSOLUTE AUTO 1.14 K/mm3 (0.16-1.47); MONOCYTES PERCENT AUTO 20 % (4-13); Mean Corpuscular HGB Conc 30.2 g/dL (31.5-36.5); Mean Corpuscular Volume 70 fL (80-100); Mean Platelet Volume 8.6 fL (9.1-12.4); NEUTROPHILS ABSOLUTE AUTO 3.18 K/mm3 (1.96-9.15); NEUTROPHILS PERCENT AUTO 56 % (41-73); NRBC ABSOLUTE 0.02 K/mm3 (0.00-0.02); NRBC Auto 0.3 /100 WBC (0.0-0.2); Platelet Count 431 K/mm3 (150-400); RDW Coefficient Variation 21.6 % (11.7-14.2); RDW Standard Deviation 52.4 fL (35.1-46.3); Red Blood Cell Count 4.66 M/mm3 (4.30-5.90); White Blood Cell Count 5.73 K/mm3 (4.00-11.30)
== END | disposition home or self-care (01) ==
LOC: LAB 14:24 → LAB SHORT 14:24
PROVIDERS: Family Medicine
DX: D64.9 Anemia, unspecified (principal)
CPT/HCPCS: 85025